=== PATIENT | male | born 2000 | race Caucasian/White ===

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

== ENCOUNTER 2022-03-10 12:09 | Emergency (ER) | payer OTHER, SELFPAY ==
--- NOTE | 2022-03-10 12:31 | PC.NURSE ---
UPON TRIAGE, IT IS NOTED PT HAS INGROWN HAIR TO LEFT SIDE OF CHEST. PT REPORTS HE RECENTLY HAD A CARDIAC DEVICE IMPLANTED, DOES FOLLOW UP WITH CARDIOLOGY TOMORROW. PT DECIDES HE DOES NOT WANT TO BE SEEN AT THIS TIME. NO SIGNS OF INFECTION ARE NOTED. ADVISED TO RETURN IF SX WORSEN.
== END 2022-03-10 12:34 | disposition left against medical advice (07) ==
LOC: CHSED 12:14
PROVIDERS: Emergency Provider Emergency Medicine; PCP Family Medicine
DX: Z04.9 Encounter for examination and observation for unspecified reason (principal)
CPT/HCPCS: 99199

== ENCOUNTER 2022-03-30 13:50 | Emergency (ER) | payer OTHER, SELFPAY ==
--- NOTE | ~2022-03-30 | CT_ITS ---
EXAMINATION: CT abdomen pelvis wo con DATE: 03/30/2022 15:07 INDICATION: Epigastric pain TECHNIQUE: Computed tomography (CT) of the abdomen and pelvis was performed without intravenous contr ast. The dose-length product was 1696.01 mGy-cm. Automated exposure control and iterative reconstruct ion technique were employed. COMPARISON: CT dated 03/30/2020. FINDINGS: Lung bases are unremarkable. Heart size normal. No significant pleural or pericardial effus ion. No significant vascular abnormality. Small Bochdalek hernia. The liver, pancreas, adrenal glands and kidneys are unremarkable. There is ab normal thickening of the terminal ileum with mild surrounding inflammation fatty infiltration, suspic ious for ileitis. There is dilated proximal small bowel containing fecal material consistent with at least partial obstruction. Small amount of free fluid in the pelvis. No abscess. There is a fat-conta ining right inguinal hernia. Moderate lumbar spondylosis with grade 1 degenerative spondylolisthesis at L4-5. The spleen is not identified, likely absent. No significant vascular abnormality. No lymphad enopathy. IMPRESSION: 1. Abnormal thickening of the ileum causing partial obstruction, most likely secondary to inflammator y bowel disease (i.e.: Crohn's disease) or infection. Reviewed, dictated and finalized at location A. IMPRESSION: 1. Abnormal thickening of the ileum causing partial obstruction, most likely se condary to inflammatory bowel disease (i.e.: Crohn's disease) or infection.
[2022-03-30 13:55] VITALS: BP 174/100; PULSE 67; RESP 16; TEMP 36.3; O2SAT 96
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
[2022-03-30 15:00] VITALS: BP 170/95; PULSE 74; RESP 16; O2SAT 97
[2022-03-30 15:02] LABS: Basophils Absolute Auto 0.07 K/mm3 (0.00-0.10); Basophils Percent Auto 0.5 % (0.0-1.0); Eosinophils Absolute Auto 0.21 K/mm3 (0.02-0.50); Eosinophils Percent Auto 1.6 % (1.0-6.0); Hematocrit 52.5 % (40.0-54.0); Hemoglobin 17.6 g/dL (14.0-18.0); Immature Granulocyte Absolute 0.05 K/mm3 (0.00-0.00); Immature Granulocyte Percent A 0.4 % (0.0-0.0); Lymphocytes Percent Auto 27.1 % (18.0-42.0); Mean Corpuscular HGB Conc 33.5 g/dL (32.0-36.0); Mean Corpuscular Hemoglobin 30.1 pg (27.0-31.0); Mean Corpuscular Volume 89.9 fL (78.0-102.0); Mean Platelet Volume 11.4 fl (8.7-11.0); Monocytes Absolute Auto 1.09 K/mm3 (0.10-0.90); Monocytes Percent Auto 8.2 % (2.0-11.0); Neutrophils Absolute Auto 8.3 K/mm3 (1.7-7.2); Neutrophils Percent Auto 62.2 % (50.0-70.0); Platelet Count Result 345 K/mm3 (150-420); Red Blood Count 5.84 M/mm3 (4.70-6.10); Red Cell Distribution Width 14.6 % (11.6-14.4); White Blood Count 13.3 K/mm3 (4.8-10.8)
[2022-03-30 15:03] LABS: Appearance Urine Clear (Clear); Bilirubin Urine Negative (Negative); Color Urine Yellow (Yellow); Glucose Urine UA Negative (Negative); Ketones Urine Negative (Negative); Leukocyte Esterase Ur Negative LEU/UL (Negative); Nitrate Urine Negative (Negative); Protein Urine Negative (Negative)
[2022-03-30 15:13] LABS: Add Urine Microscopic? YES; Blood Urine Trace-Intact (Negative); RBC Urine 0-2 /hpf (0-2)
[2022-03-30 15:14] LABS: Bacteria Urine Trace /hpf; Squamous Epithelial Cell Urine None seen /hpf (Few); WBC Urine 0-3 /hpf (0-3)
[2022-03-30 15:20] LABS: Alanine Aminotransferase 22 U/L (16-63); Albumin Level 3.6 g/dL (3.4-5.0); Alkaline Phosphatase 104 U/L (46-116); Anion Gap 6 mmol/L (8-16); Aspartate Amino Transferase 22 U/L (15-37); Bilirubin,Total 0.7 mg/dL (0.00-1.00); Blood Urea Nitrogen 12 mg/dL (7-18); Calcium 9.1 mg/dL (8.5-10.1); Carbon Dioxide 27 mmol/L (21-32); Chloride 102 mmol/L (98-108); Estimated CRCL calculation 116 ml/min; Estimated Glomerular Filt Rate > 60; Glucose 98 mg/dL (70-99); Osmolality Calculated 279 mOsm/kg (285-295); Potassium 4.2 mmol/L (3.5-5.1); Sodium 135 mmol/L (136-145); Total Protein 8.3 g/dL (6.4-8.2)
[2022-03-30 15:25] LABS: Lactic Acid Reflex 0.8 mmol/L (0.4-2.0)
[2022-03-30 15:29] LABS: CRP < 0.2 mg/dL (0.0-0.9)
[2022-03-30] MEDS: methylPREDNISolone SOD SUCC 125 MG VIAL IV PUSH (15:50)
[2022-03-30 15:55] VITALS: BP 177/95; PULSE 81; RESP 18; TEMP 36.7; O2SAT 97
== END 2022-03-30 15:55 | disposition home or self-care (01) ==
PROVIDERS: Emergency Provider Emergency Medicine; PCP Family Medicine
DX: K50.00 Crohn's disease of small intestine without complications (principal)
CPT/HCPCS: 36415; 74176; 80053; 81001; 83605; 85025; 86140; 96374; 99284; J2930

== ENCOUNTER 2023-03-23 21:27 | Emergency (ER) | payer MEDICARE, SELFPAY ==
[2023-03-23 21:30] VITALS: BP 124/85; PULSE 78; RESP 18; TEMP 37; O2SAT 97
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
[2023-03-23] MEDS: TETRACAINE HCL 0.5% OPHTH SOLN 4 ML BTL 1 DROP LEFT EYE (21:45)
[2023-03-23] MEDS: FLUORESCEIN SOD 1 MG/STRIP EACH EYE (21:45)
[2023-03-23] MEDS: DACRIOSE EYE IRRIGATION 118 ML BOTTLE LEFT EYE (22:06)
[2023-03-23] MEDS: TETANUS,DIPHTHERIA,AC PERTUSSIS ADULT 0.5 ML (ADACEL) IM (22:34)
[2023-03-23] MEDS: ERYTHROMYCIN OPHTH OINTMENT 3.5 GM TUBE 1 APPLIC LEFT EYE (22:35)
[2023-03-23 22:43] VITALS: BP 112/80; PULSE 88; RESP 20; TEMP 36.6; O2SAT 99
== END 2023-03-23 22:45 | disposition home or self-care (01) ==
PROVIDERS: Emergency Provider Internal Medicine Critical Care Medicine; PCP Family Medicine
DX: S05.02XA Injury of conjunctiva and corneal abrasion without foreign body, left eye, initial encounter (principal); I10 Essential (primary) hypertension; I48.91 Unspecified atrial fibrillation; E78.5 Hyperlipidemia, unspecified; Z87.891 Personal history of nicotine dependence; Z23 Encounter for immunization; X58.XXXA Exposure to other specified factors, initial encounter
CPT/HCPCS: 90471; 90715; 99283; A9270

== ENCOUNTER 2023-08-03 18:14 | Emergency (ER) | payer MEDICARE, MEDICAID, SELFPAY ==
--- NOTE | ~2023-08-03 | XR_ITS ---
EXAM: XR shoulder RT min 2V DATE: 08/03/2023 18:40 HISTORY: shoulder pain X 3 DAYS/NO TRAUMA . COMPARISON: None available. FINDINGS: Normal mineralization. No fracture or dislocation. No lytic or blastic lesion. Mild degene rative change at the AC joint and glenohumeral joint. No erosion or periosteal change. Soft tissues w ithin normal limits. IMPRESSION: No acute osseous finding in the right shoulder. Reviewed, dictated and finalized at location [facility] [employer]
[2023-08-03 18:15] VITALS: BP 164/101; PULSE 84; RESP 18; TEMP 37.1; O2SAT 98
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
[2023-08-03] MEDS: HYDROcodone/acetaminophen (*CRX) 5-325 MG TABLET 1 TAB PO (19:08)
== END 2023-08-03 19:11 | disposition home or self-care (01) ==
PROVIDERS: Emergency Provider Internal Medicine Critical Care Medicine; PCP Family Medicine
DX: S46.811A Strain of other muscles, fascia and tendons at shoulder and upper arm level, right arm, initial encounter (principal); I48.91 Unspecified atrial fibrillation; I10 Essential (primary) hypertension; E78.5 Hyperlipidemia, unspecified; Z87.891 Personal history of nicotine dependence; X58.XXXA Exposure to other specified factors, initial encounter
CPT/HCPCS: 73030; 99283; A9270

== ENCOUNTER 2023-11-22 16:29 | Emergency (ER) | payer MEDICARE, SELFPAY ==
[2023-11-22 16:31] VITALS: BP 176/118; PULSE 88; RESP 19; TEMP 37.1; O2SAT 97
[2023-11-22 16:38] VITALS: BP 176/118; PULSE 88; RESP 19; TEMP 37.1; O2SAT 97
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
[2023-11-22 16:46] VITALS: BP 149/106
[2023-11-22] MEDS: LIDOCAINE 5% PATCH 1 PATCH TRANSDERM (16:52)
[2023-11-22] MEDS: methocarbamoL 750 MG TABLET 1500 MG PO (16:52)
[2023-11-22] MEDS: ACETAMINOPHEN 500 MG TABLET 1000 MG PO (16:52)
== END 2023-11-22 17:00 | disposition home or self-care (01) ==
LOC: CHSED 16:51
PROVIDERS: Emergency Provider Emergency Medicine; PCP Family Medicine
DX: S16.1XXA Strain of muscle, fascia and tendon at neck level, initial encounter (principal); I48.91 Unspecified atrial fibrillation; E78.5 Hyperlipidemia, unspecified; I10 Essential (primary) hypertension; E66.9 Obesity, unspecified; Z68.41 Body mass index [BMI] 40.0-44.9, adult
CPT/HCPCS: 99283; A9270